=== PATIENT | female | born 1955 | race Caucasian/White ===

== ENCOUNTER 2022-04-20 11:24 | Emergency (ER) | payer OTHER ==
[~2022-04-20] VITALS: Ht 165.1 cm; Wt 102.1 kg
[2022-04-20 13:20] LABS: BASOPHIL 0.5 % (0-2); EOSINOPHIL 1.3 % (0-7); HCT 44.4 % (37.0-47.0); HGB 14.8 g/dl (12.5-16.0); LYMPHOCYTE 14.8 % (15-48); MCH 31.1 pg (25.0-31.0); MCHC 33.3 g/dL (32.0-36.0); MCV 93.3 fL (78.0-100.0); MONOCYTE 9.7 % (0-12); MPV 8.6 fL (6.0-9.5); NEUTROPHIL 73.4 % (41-80); NRBC 0; PLT 292 K/uL (150-400); RBC 4.76 M/uL (4.20-5.40); RDW 13.1 % (11.5-14.0); WBC 9.9 K/uL (4.0-10.5)
[2022-04-20 13:33] LABS: BUN/CREAT RATIO (CALC) 18.1 RATIO; CREATININE 0.72 mg/dL (0.51-0.95); POTASSIUM 4.2 mmol/L (3.5-5.1)
[2022-04-20] MEDS ORDERED: CLINDAMYCIN HC300 MG PO (14:36)
[2022-04-20] MEDS ORDERED: NORCO 5-325 TA1 EACH PO (14:36)
[2022-04-21] MEDS ORDERED: ONDANSETRON ODT4 MG PO (19:11)
== END 2022-04-20 14:49 | disposition home or self-care (01) ==
LOC: FER 11:24
PROVIDERS: Nurse Practitioner Family
DX: K04.7 Periapical abscess without sinus (principal); I10 Essential (primary) hypertension; Z28.310 Unvaccinated for COVID-19
CPT/HCPCS: 36415; 80048; 85025; J2270; J7030

== ENCOUNTER 2022-04-21 16:28 | Emergency (ER) | payer OTHER ==
[~2022-04-21 16:28] MED LIST: CLINDAMYCIN HC300 MG PO; NORCO 5-325 TA1 EACH PO
[2022-04-21 18:15] LABS: BASOPHIL 0.7 % (0-2); EOSINOPHIL 2.9 % (0-7); HGB 15.2 g/dl (12.5-16.0); MCH 31.5 pg (25.0-31.0); MCV 95.4 fL (78.0-100.0); MONOCYTE 11.5 % (0-12); MPV 8.9 fL (6.0-9.5); NEUTROPHIL 57.6 % (41-80); NRBC 0; RBC 4.82 M/uL (4.20-5.40); RDW 13.2 % (11.5-14.0); WBC 9.1 K/uL (4.0-10.5)
[2022-04-21 18:22] LABS: BUN/CREAT RATIO (CALC) 16.2 RATIO; CREATININE 0.68 mg/dL (0.51-0.95); POTASSIUM 4.5 mmol/L (3.5-5.1)
[2022-04-21 18:37] LABS: PLT 380 K/uL (150-400)
[2022-04-21] MEDS ORDERED: ONDANSETRON ODT4 MG PO (19:11)
== END 2022-04-21 19:26 | disposition home or self-care (01) ==
LOC: FER 16:28
PROVIDERS: Nurse Practitioner Family
DX: L03.211 Cellulitis of face (principal); R11.0 Nausea; Z28.310 Unvaccinated for COVID-19
CPT/HCPCS: 36415; 70486; 70490; 80048; 85025